=== PATIENT | female | born 1965 | race Caucasian/White ===

== ENCOUNTER 2018-03-22 07:07 | Day surgery (SDC) | payer OTHER ==
--- NOTE | 2018-03-22 07:00 | PDHPUP ---
History & Physical Update H&P update statement: This history and physical update is based on an assessment of the patient which was completed after admission or registration (within 24 hours), but prior to the surgery/procedure. H&P update: H&P reviewed & patient examined, no change in patient's condition since H&P completed
--- NOTE | 2018-03-22 07:01 | POSTOPPROG ---
Post Op Note Date of Operation: 03/22/18 Surgeon: Juan Manuel Millan Anesthesia: IV Sedation Pre-op Diagnosis: ventral hernia Post-op Diagnosis: same Procedure: ventral hernia with 1.7" Ventralex Findings: attenuated fascia - 2cm incarcerated omentum Inf/Abcess present in the surg proc area at time of surgery?: No EBL: Minimal Specimen(s): none
[2018-03-22] MEDS ORDERED: LR 1,000 ML IV ONE (07:25)
[2018-03-22] MEDS ORDERED: BUPIVACAINE/EPI 0.5% 30 ML SDV ONE (07:32)
--- NOTE | 2018-03-22 08:19 | PDANEPAE ---
ANE History of Present Illness ventral hernia ANE Past Medical History - Cardiovascular History Hx Hypertension: No Hx Arrhythmias: No Hx Chest Pain: No Hx Coronary Artery / Peripheral Vascular Disease: No Hx CHF / Valvular Disease: No Hx Palpitations: No Cardiovascular History Comment: BP runs low - Pulmonary History Hx COPD: No Hx Asthma/Reactive Airway Disease: No Hx Recent Upper Respiratory Infection: No Hx Oxygen in Use at Home: No Hx Sleep Apnea: No Sleep Apnea Screening Result - Last Documented: Negative - Neurologic History Hx Cerebrovascular Accident: No Hx Seizures: No Hx Dementia: No - Endocrine History Hx Diabetes: No Hypothyroid: No Hyperthyroid: No Obesity: no - Renal History Hx Renal Disorders: No - Liver History Hx Hepatic Disorders: No - Neurological & Psychiatric Hx Hx Neurological and Psychiatric Disorders: No - Cancer History Hx Cancer: Yes Cancer History Comment: basal,squamous cell - Congenital Disorder History Hx Congenital Disorders: No - GI History GERD: no Hx Gastrointestinal Disorders: No - Other Health History Other Health History: none - Chronic Pain History Chronic Pain: No - Surgical History Prior Surgeries: none in last 5 yrs. ANE Review of Systems Review of systems is: negative Review of Systems: - Exercise capacity METS (RN): 6 METS ANE Patient History - Allergies Allergies/Adverse Reactions: shellfish derived Allergy (Verified 03/21/18 17:59) Unknown Sulfa (Sulfonamide Antibiotics) Allergy (Verified 03/21/18 17:52) Hives - Home Medications Home medications: home medication list seen and reviewed Home Medications: NK [No Known Home Meds] 03/21/18 [Last Taken Unknown] - NPO status NPO Status: no food or drink >8 hours NPO Since - Liquids (Date): 03/21/18 NPO Since - Liquids (Time): 21:00 NPO Since - Solids (Date): 03/21/18 NPO Since - Solids (Time): 20:30 - Anes Hx Anes Hx: no prior problems - Smoking Hx Smoking Status: Never smoked Marijuana use: No - Alcohol Use Alcohol Use: Rarely - Family Anes Hx Family Anes Hx: none Family Hx Anesthesia Complications: none ANE Labs/Vital Signs - Vital Signs Blood Pressure: 122/69 Heart Rate: 69 Respiratory Rate: 16 O2 Sat (%): 99 Height: 157.48 cm Weight: 63.503 kg ANE Physical Exam - Airway Neck exam: FROM Mallampati Score: Class 2 Mouth exam: normal dental/mouth exam - Pulmonary Pulmonary: no respiratory distress, clear to auscultation - Cardiovascular Cardiovascular: regular rate and rhythym, no murmur, rub, or gallop - ASA Status ASA Status: I ANE Anesthesia Plan Anesthesia Plan: general endotracheal anesthesia
[2018-03-22] MEDS ORDERED: fentaNYL 100 MCG/2 ML INJ ONE (10:23)
[2018-03-22] MEDS ORDERED: PROPOFOL 200 MG/20 ML VIAL ONE (10:24)
[2018-03-22] MEDS ORDERED: fentaNYL 100 MCG/2 ML INJ IVP PRN (10:29)
[2018-03-22] MEDS ORDERED: NALOXONE HCL 0.4 MG/ML INJ IVP PRN (10:29)
[2018-03-22] MEDS ORDERED: PROMETHAZINE HCL 25 MG/ML INJ IVP PRN (10:29)
[2018-03-22] MEDS ORDERED: MEPERIDINE 25 MG/0.5 ML AMP IVP PRN (10:29)
--- NOTE | 2018-03-22 10:29 | POSTANESTH ---
Post Anesthetic Evaluation Cardiovascular Status: Normal, Stable Respiratory Status: Normal, Stable Level of Consciousness/Mental Status: Can Participate in Eval Pain Control: Adequate, Prn Tx Ordered Nausea/Vomiting Control: Adequate, Prn Tx Ordered Complications Possibly Related to Anesthesia: None Noted
[2018-03-22] MEDS ORDERED: LIDOCAINE 2% 5 ML SDV ONE (10:35)
[2018-03-22] MEDS ORDERED: PROPOFOL/EMULSION 500 MG/50 ML BOTTLE IV ONE (10:39)
--- NOTE | 2018-03-22 11:18 | GOP ---
DATE OF OPERATION: 03/22/2018 SURGEON: Juan Manuel Millan MD MANAGER HAR[employer]: Mariposa Davis PA-C. ANESTHESIA: MAC ANESTHESIOLOGIST: Dr. Clayton. PREOPERATIVE DIAGNOSIS: Symptomatic ventral hernia. POSTOPERATIVE DIAGNOSIS: Symptomatic ventral hernia. PROCEDURE PERFORMED: Ventral herniorrhaphy with 1.7 inch Ventralex mesh. FINDINGS: See below. INDICATIONS: 52-year-old female with a symptomatic ventral hernia. She is undergoing surgical repair at this time. Risks and benefits were explained including bleeding, infection, recurrence, as well as bowel injury. All questions were answered. She desires to proceed. trading assistant is standard and necessary and customary for the safe performance of this procedure. DESCRIPTION OF PROCEDURE: After monitored anesthesia was started, the abdomen was pre-injected with 0.5% Marcaine with epinephrine. A vertical supraumbilical incision was created. A 2 cm defect was present with incarcerated omentum. The sac was cleared back to healthy-appearing fascial edges. The fascia was of poor attenuated quality. A 1.7 inch Ventralex mesh was inserted subfascially, and the defect closed transversely with a running Vicryl suture. The wound was closed in layers with absorbable sutures followed by Dermabond. The patient was taken to recovery uneventfully. /[id number]/MODL MTDD
[2018-03-22 12:00] VITALS: BP 103/69
== END 2018-03-22 12:30 | disposition home or self-care (01) ==
LOC: FSGY 07:07
PROVIDERS: ATTEND Surgery
PROC: 0WUF0JZ Supplement Abdominal Wall with Synthetic Substitute, Open Approach (ICD-10-PCS; principal; 2018-03-22 08:30)
DX: K43.9 Ventral hernia without obstruction or gangrene (principal); Z85.828 Personal history of other malignant neoplasm of skin; Z82.49 Family history of ischemic heart disease and other diseases of the circulatory system; Z88.2 Allergy status to sulfonamides
CPT/HCPCS: C1781; J2704; J3010